=== PATIENT | male | born 1965 | race African-American/Black ===

== ENCOUNTER 2016-04-22 15:19 | Emergency (ER) | payer OTHER ==
[~2016-04-22] VITALS: Ht 180.3 cm; Wt 152.6 kg
[2016-04-22 15:35] LABS: HEMATOCRIT 40.9 % (38.0-50.0); MCH 24.8 PG (29.0-34.0); MCHC 32.8 G/DL (30.0-36.0); MCV 75.6 FL (86-99); MEAN PLAT.VOLUME 9.2 uM^3 (9.0-12.4); PLATELET COUNT 229 K/uL (156-360); RBC DIS.WIDTH-SD 43.5 % (39-53); RED BLOOD COUNT 5.41 M/uL (4.00-5.50); WHITE BLOOD COUNT 5.3 K/uL (4.1-10.2)
[2016-04-22 15:49] LABS: CHLORIDE 109 mEq/L (99-109); POTASSIUM 3.8 mEq/L (3.7-5.4); SODIUM 141 mEq/L (136-147)
[2016-04-22 15:50] LABS: GLUCOSE 119 mg/dL (70-99)
[2016-04-22 15:52] LABS: ANION GAP 9 MEQ/L (2-14)
[2016-04-22 15:54] LABS: GFR ESTIMATE (CALCULATED) > 59 mL/min/
[2016-04-22 15:55] LABS: UREA NITROGEN (BUN) 17 mg/dL (9-23)
[2016-04-22 15:58] LABS: TROP-I INTERPRETATION NEGATIVE; TROPONIN-I < 0.01 ng/mL (0.0-0.30)
[2016-04-22 18:33] LABS: TROP-I INTERPRETATION NEGATIVE; TROPONIN-I 0.02 ng/mL (0.0-0.30)
[2016-04-22 19:36] VITALS: BP 152/94
== END 2016-04-22 19:37 | disposition home or self-care (01) ==
LOC: EME 15:19
PROVIDERS: Emergency Medicine
DX: R07.9 Chest pain, unspecified (principal); I10 Essential (primary) hypertension
CPT/HCPCS: 71020; 80048; 84484; 85027; 93005; 99281; 99284

== ENCOUNTER 2016-09-21 11:37 | Emergency (ER) | payer OTHER ==
[~2016-09-21] VITALS: Ht 180.3 cm; Wt 153.9 kg
[2016-09-21] MEDS ORDERED: OXYCODONE HCL10 MG PO (14:06)
[2016-09-21] MEDS ORDERED: OXYCODONE HCL5 MG PO (14:11)
[2016-09-21 14:25] VITALS: BP 137/87
== END 2016-09-21 14:27 | disposition home or self-care (01) ==
LOC: EME 11:37
DX: M06.9 Rheumatoid arthritis, unspecified (principal); Z76.0 Encounter for issue of repeat prescription; I10 Essential (primary) hypertension
CPT/HCPCS: 99281; 99282; J1885

== ENCOUNTER 2017-04-21 17:35 | Emergency (ER) | payer OTHER ==
[~2017-04-21] VITALS: Ht 180.3 cm; Wt 149.5 kg
[~2017-04-21 17:35] MED LIST: OXYCODONE HCL10 MG PO; OXYCODONE HCL5 MG PO
[2017-04-21] MEDS ORDERED: PREDNISONE50 MG PO (19:34)
[2017-04-21] MEDS ORDERED: MOTRIN400 MG PO (19:34)
[2017-04-21 19:51] VITALS: BP 160/98
== END 2017-04-21 19:51 | disposition home or self-care (01) ==
LOC: EME 17:35
DX: M10.9 Gout, unspecified (principal); I10 Essential (primary) hypertension; Z88.6 Allergy status to analgesic agent
CPT/HCPCS: 99281; 99283; J1885; J7512

== ENCOUNTER 2017-07-25 11:18 | Emergency (ER) | payer OTHER ==
[~2017-07-25] VITALS: Ht 180.3 cm; Wt 150.9 kg
[~2017-07-25 11:18] MED LIST changes: +MOTRIN400 MG PO; +PREDNISONE50 MG PO
[2017-07-25 11:36] VITALS: BP 173/109
[2017-07-25 13:04] LABS: HEMATOCRIT 45.4 % (38.0-50.0); HEMOGLOBIN 14.5 G/DL (12.5-16.6); MCH 25.1 PG (29.0-34.0); MCHC 31.9 G/DL (30.0-36.0); MCV 78.7 FL (86-99); PLATELET COUNT 219 K/uL (156-360); RBC DIS.WIDTH-CV 15.7 % (11.8-14.6); RBC DIS.WIDTH-SD 44.1 % (39-53); RED BLOOD COUNT 5.77 M/uL (4.00-5.50); WHITE BLOOD COUNT 4.2 K/uL (4.1-10.2)
[2017-07-25 13:14] LABS: CHLORIDE 108 mEq/L (99-109); POTASSIUM 3.9 mEq/L (3.7-5.4); SODIUM 144 mEq/L (136-147)
[2017-07-25 13:16] LABS: GLUCOSE 82 mg/dL (70-99)
[2017-07-25 13:19] LABS: CREATININE 1.4 mg/dL (0.6-1.3); GFR ESTIMATE (CALCULATED) > 59 mL/min/ (58.99-99999)
[2017-07-25 13:20] LABS: UREA NITROGEN (BUN) 15 mg/dL (9-23)
[2017-07-25 13:24] LABS: TROP-I INTERPRETATION NEGATIVE; TROPONIN-I < 0.01 ng/mL (0.0-0.30)
== END 2017-07-25 14:40 | disposition left against medical advice (07) ==
LOC: EME 11:18
PROVIDERS: Nurse Practitioner Family
DX: R07.9 Chest pain, unspecified (principal); R51 Headache; I10 Essential (primary) hypertension; Z53.21 Procedure and treatment not carried out due to patient leaving prior to being seen by health care provider; M17.10 Unilateral primary osteoarthritis, unspecified knee; M19.072 Primary osteoarthritis, left ankle and foot; M19.071 Primary osteoarthritis, right ankle and foot; M19.019 Primary osteoarthritis, unspecified shoulder; Z88.6 Allergy status to analgesic agent
CPT/HCPCS: 71046; 80048; 84484; 85027; 93005